=== PATIENT | female | born 2000 | race Two or more races ===

== ENCOUNTER 2023-11-25 12:00 | Observation (INO) | payer MEDICAID ==
[2023-11-25 13:23] LABS: Urine Bacteria None Seen /hpf (None Seen)
[2023-11-25 13:27] LABS: Basophils # (auto) 0 10 ^3/uL (0-0.2); Basophils % (auto) 0.2 % (0.0-2.0); Eosinophils # (auto) 0.1 10 ^3/uL (0-0.8); Eosinophils % (auto) 1.8 % (0.0-7.0); Hematocrit 32.4 % (36.0-46.0); Hemoglobin 11.2 g/dL (12.2-16.2); Lymphocytes # (auto) 1.9 10 ^3/uL (0.4-5.4); Lymphocytes % (auto) 25.6 % (10.0-50.0); Mean Corpuscular Hemoglobin 29.8 pg (28.0-32.0); Mean Corpuscular Hgb Conc. 34.4 g/dL (32.0-36.0); Mean Corpuscular Volume 86.5 fL (80.0-100.0); Monocytes # (auto) 0.4 10 ^3/uL (0-1.3); Monocytes % (auto) 5.1 % (0.0-12.0); Neutrophils % (auto) 67.3 % (37.0-80.0); Red Blood Cells 3.75 10^6/uL (4.0-5.20); Red Cell Distribution Width 13.1 % (11.8-14.3); White Blood Cell 7.4 10^3/uL (4.4-10.8)
[2023-11-25 13:27] LABS: Fern Testing Negative
[2023-11-25 13:42] LABS: Urine Blood Negative /uL (Negative); Urine Clarity Turbid (Clear); Urine Color Light-Yellow (Yellow); Urine Mucus FEW (None Seen); Urine Protein, UAD TRACE (Negative); Urine Specific Gravity 1.016 (1.001-1.035); Urine Urobilinogen Normal (Negative); Urine WBC 2 /hpf (0 - 5)
[2023-11-25 13:51] LABS: INR 0.92 (0.9-1.15); Partial Thromboplastin Time 25.5 SEC (24.5-34.5); Prothrombin Time 9.8 sec (9.3-11.8)
[2023-11-25 13:54] LABS: Alanine Aminotransferase 18 U/L (7-40); Albumin 3.5 g/dL (3.2-4.8); Alkaline Phosphatase 98 U/L (46-116); Anion Gap 5 (5-15); Aspartate Aminotransferase 18 U/L (13-40); Bilirubin, Total 0.4 mg/dL (0.2-1.0); Carbon Dioxide 22 mmol/L (20-30); Chloride 109 mmol/L (98-107); Glucose 86 mg/dL (74-106); Potassium 3.8 mmol/L (3.5-5.1); Sodium 136 mmol/L (136-145); Total Protein 6.1 g/dL (5.7-8.2); Uric Acid 3.5 mg/dL (3.1-7.8)
[2023-11-25 13:57] LABS: Protein, Urine 21.2 mg/dL (0.0-11.9)
[2023-11-25 14:00] LABS: Creatinine, Urine 91.83 mg/dL (30.0-125.0); Urine Protein/Creatinine Ratio 0.23
[2023-11-25 14:27] LABS: BUN/Creatinine Ratio 12.5 (10.0-20.0); Blood Urea Nitrogen < 5 mg/dL (9-23)
== END 2023-11-25 15:15 | disposition home or self-care (01) ==
LOC: LDRP 12:00 → UNDOADMOB 12:00 → LDRP 12:15
PROVIDERS: ADMIT Obstetrics & Gynecology; ATTEND Obstetrics & Gynecology
DX: O41.93X0 Disorder of amniotic fluid and membranes, unspecified, third trimester, not applicable or unspecified (principal); O26.893 Other specified pregnancy related conditions, third trimester; R51.9 Headache, unspecified; Z3A.35 35 weeks gestation of pregnancy; Z79.899 Other long term (current) drug therapy; Z98.890 Other specified postprocedural states
CPT/HCPCS: 36415; 59025; 76818; 80053; 81001; 81002; 82570; 84112; 84156; 84550; 85025; 85610; 85730; 94760; G0378; Q0114

== ENCOUNTER 2023-12-20 06:01 | Inpatient (IN) | payer MEDICAID ==
[~2023-12-20] VITALS: Ht 162.6 cm; Wt 69.9 kg
[2023-12-20] MEDS ORDERED: WITCH HAZEL-GLYCERIN PAD TOP PRN (06:30)
[2023-12-20] MEDS ORDERED: PHISODERM TOP SOLN 240ML BTL TOP PRN (06:30)
[2023-12-20] MEDS ORDERED: DERMOPLAST 60ML BOTTLE TOP PRN (06:30)
[2023-12-20] MEDS: PENICILLIN G POT 5MIL/D5 50ML 50 ML IV ONE (07:01)
[2023-12-20] MEDS: LACTATED RINGER'S 1,000 ML IV SCH (07:01)
[2023-12-20 07:34] LABS: INR 0.91 (0.9-1.15); Partial Thromboplastin Time 25.2 SEC (24.5-34.5); Prothrombin Time 9.7 sec (9.3-11.8)
[2023-12-20 07:36] LABS: Alanine Aminotransferase 12 U/L (7-40); Albumin 3.5 g/dL (3.2-4.8); Alkaline Phosphatase 142 U/L (46-116); Anion Gap 12 (5-15); Aspartate Aminotransferase 12 U/L (13-40); Calcium 8.6 mg/dL (8.7-10.4); Carbon Dioxide 20 mmol/L (20-30); Chloride 105 mmol/L (98-107); Glucose 84 mg/dL (74-106); Potassium 3.8 mmol/L (3.5-5.1); Sodium 137 mmol/L (136-145); Uric Acid 4.4 mg/dL (3.1-7.8)
[2023-12-20 07:37] LABS: BUN/Creatinine Ratio 11.1 (10.0-20.0); Bilirubin, Total 0.3 mg/dL (0.2-1.0); Blood Urea Nitrogen < 5 mg/dL (9-23); Total Protein 6.2 g/dL (5.7-8.2)
[2023-12-20 07:38] LABS: Basophils # (auto) 0 10 ^3/uL (0-0.2); Basophils % (auto) 0.2 % (0.0-2.0); Eosinophils # (auto) 0.1 10 ^3/uL (0-0.8); Eosinophils % (auto) 1.1 % (0.0-7.0); Hematocrit 31.9 % (36.0-46.0); Hemoglobin 11.1 g/dL (12.2-16.2); Lymphocytes # (auto) 2.5 10 ^3/uL (0.4-5.4); Lymphocytes % (auto) 32.5 % (10.0-50.0); Mean Corpuscular Hemoglobin 29.4 pg (28.0-32.0); Mean Corpuscular Hgb Conc. 34.9 g/dL (32.0-36.0); Mean Corpuscular Volume 84.2 fL (80.0-100.0); Monocytes # (auto) 0.4 10 ^3/uL (0-1.3); Monocytes % (auto) 5.3 % (0.0-12.0); Neutrophils # (auto) 4.7 10 ^3/uL (1.6-8.6); Neutrophils % (auto) 60.9 % (37.0-80.0); Red Blood Cells 3.79 10^6/uL (4.0-5.20); Red Cell Distribution Width 13.5 % (11.8-14.3); White Blood Cell 7.7 10^3/uL (4.4-10.8)
[2023-12-20 07:49] LABS: Urine Bacteria FEW /hpf (None Seen); Urine Blood Negative /uL (Negative); Urine Color Yellow (Yellow); Urine Mucus FEW (None Seen); Urine Protein, UAD TRACE (Negative); Urine Specific Gravity 1.023 (1.001-1.035); Urine Urobilinogen Normal (Negative); Urine WBC 4 /hpf (0 - 5)
[2023-12-20 07:54] LABS: Protein, Urine 37.9 mg/dL (0.0-11.9)
[2023-12-20 07:55] LABS: Urine Clarity Hazy (Clear)
[2023-12-20 07:56] LABS: Amphetamine Screen, Urine Neg (NEGATIVE); Barbiturate Scree,Urine Neg (NEGATIVE); Benzodiazephine Screen, Urine Neg (NEGATIVE); Cocaine Screen, Urine Neg (NEGATIVE); Opiate Scree,Urine Neg (NEGATIVE); Phencyclidine Screen, Urine Neg (NEGATIVE)
[2023-12-20 07:57] LABS: Cannabinoid Screen, Urine Neg (NEGATIVE); Creatinine, Urine 137.93 mg/dL (30.0-125.0); Urine Protein/Creatinine Ratio 0.27
[2023-12-20 08:31] LABS: Fern Testing Negative
[2023-12-20] MEDS ORDERED: PENICILLIN G POTASSIUM 2,500,000 UNITS in D5W 5% 50 ML IV SCH (11:00)
[2023-12-20] MEDS ORDERED: ONDANSETRON ODT 4 MG TAB PO PRN (12:30)
[2023-12-20] MEDS ORDERED: ACETAMINOPHEN 325 MG TAB PO PRN (12:30)
[2023-12-20] MEDS: ceFAZolin 1GM/50ML 50 ML IV SCH (14:06)
[2023-12-20] MEDS: LACT. RINGERS/OXYTOCIN 20UNITS 500 ML IV ONE ×2 (14:07)
[2023-12-20] MEDS: LIDOCAINE 2%HCL (LOCAL ANESTH.) INJ 20ML MDV ONE (14:08)
[2023-12-20] MEDS: LIDOCAINE 2%HCL (LOCAL ANESTH.) INJ 20ML MDV IJ PRN (14:08)
[2023-12-20] MEDS: IBUPROFEN 600 MG TAB PO PRN (14:27)
[2023-12-20 15:30] VITALS: BP 129/63; PULSE 58; RESP 18; TEMP 97.9; O2SAT 98
[2023-12-20] MEDS ORDERED: IBUPROFEN 800 MG TAB PO SCH (18:00)
[2023-12-20] MEDS: DOCUSATE SOD 100 MG CAP PO SCH (21:30)
[2023-12-20 22:58] VITALS: BP 126/59; PULSE 72; RESP 16; TEMP 98.2; O2SAT 99
[2023-12-21 03:11] VITALS: BP 104/51; PULSE 66; RESP 16; TEMP 98.1; O2SAT 97
[2023-12-21 07:00] VITALS: BP 114/62; PULSE 71; PULSE 84; RESP 16; RESP 18; TEMP 97.3; O2SAT 98; O2SAT 99
[2023-12-21 11:00] VITALS: BP 112/56; PULSE 71; RESP 18; TEMP 98; O2SAT 99
== END 2023-12-21 13:20 | disposition home or self-care (01) | DRG 560 ==
LOC: LDRP 06:01 → UNDOADMOB 06:01 → OBSVTOIN 06:20 → LDRP 06:20 → INTOOBSV 06:20 → LDRP 06:31 → OBSVTOIN 06:31
PROVIDERS: ADMIT Obstetrics & Gynecology; ATTEND Obstetrics & Gynecology
PROC: 10E0XZZ Delivery of Products of Conception, External Approach (ICD-10-PCS; principal; 2023-12-20)
PROC: 0UQMXZZ Repair Vulva, External Approach (ICD-10-PCS; 2023-12-20)
DX: O71.82 Other specified trauma to perineum and vulva (principal); Z37.0 Single live birth; Z3A.38 38 weeks gestation of pregnancy
CPT/HCPCS: 36415; 59025; 59409; 80053; 80307; 81001; 81002; 82570; 84112; 84156; 84550; 85025; 85610; 85730; 86592; 86803; 86850; 86900; 86901; 94760; 96360; 96361; 96365; 96366; G0378; J2540; J2590; J7060